=== PATIENT | female | born 1990 | race American Indian/Alaskan Native ===

== ENCOUNTER 2021-10-14 13:00 | Emergency (ER) | payer SELFPAY ==
[2021-10-14 13:52] VITALS: BP 105/66
--- NOTE | 2021-10-14 16:24 | Emergency Department Report ---
ED N/V/D HPI - General Chief complaint: Nausea/Vomiting/Diarrhea Stated complaint: EXCESSIVE BLEEDING Source: patient Mode of arrival: Ambulatory Limitations: No Limitations - History of Present Illness Initial comments: 31-year-old -Swazi female presents to the emergency room complaining of vomiting for the last 2 days. Patient reports that she is 7 weeks l ast menstrual period was 08/28/2021. She last had her Depo was 08/24/2021. She is 4 para 3. She states that she is followed by [facility] in [place]. She she last vomited was just prior to arrival here in the emergency room. MD complaint: nausea, vomiting - Related Data Previous Rx's Medication Instructions Recorded Last Taken Type Ondansetron [Zofran Odt] 4 mg PO Q8HR #12 tab.rapdis 10/14/21 Unknown Rx Allergies Allergy/AdvReac Type Severity Reaction Status Date / Time No Known Allergies Allergy Unverified 10/14/21 13:52 ED Review of Systems ROS: Stated complaint: EXCESSIVE BLEEDING Other details as noted in HPI Comment: All other systems reviewed and negative ED Past Medical Hx - Medications Home Medications: Home Medications Medication Instructions Recorded Confirmed Last Taken Type Ondansetron [Zofran Odt] 4 mg PO Q8HR #12 tab.rapdis 10/14/21 Unknown Rx ED Physical Exam - General Limitations: No Limitations General appearance: alert, in no apparent distress - Head Head exam: Present: atraumatic, normocephalic - Eye Eye exam: Present: normal appearance - ENT ENT exam: Present: normal external ear exam - Neck Neck exam: Present: normal inspection, full ROM - Respiratory Respiratory exam: Absent: respiratory distress - Cardiovascular Cardiovascular Exam: Present: bradycardia - Extremities Exam Extremities exam: Present: normal inspection, full ROM - Back Exam Back exam: Present: normal inspection, full ROM - Neurological Exam Neurological exam: Present: alert, oriented X3, normal gait - Psychiatric Psychiatric exam: Present: normal affect, normal mood - Skin Skin exam: Present: warm, dry, intact, normal color. Absent: rash ED Course Vital Signs 10/14/21 13:47 Temperature 98.3 F Pulse Rate 53 L Respiratory 16 Rate Blood Pressure 105/66 [Right] O2 Sat by Pulse 100 Oximetry ED Medical Decision Making - Medical Decision Making 31-year-old -Sw[place] female presents to the emergency room complaining of vomiting for the last 2 days. Patient reports that she is 7 weeks last menstrual period was 08/28/2021. She last had her Depo was 08/24/2021. She is 4 para 3. She states that she is followed by [facility] in [place]. She she last vomited was just prior to arrival here in the emergency room. Patient has been in the emergency room a little bit over 3 hours if no active vomiting. We will initiate a p.o. challenge. Patient passes that she will be discharged with referral to [facility]. Critical care attestation.: If time is entered above; I have spent that time in minutes in the direct care of this critically ill patient, excluding procedure time. ED Disposition Clinical Impression: Nausea and vomiting in prior to 22 weeks gestation Disposition: HOME / SELF CARE / HOMELESS Is pt being admited?: No Does the pt Need Aspirin: No Condition: Stable Instructions: Morning Sickness Additional Instructions: Recommend to take Zofran as needed for the nausea and vomiting. Recommend trying [id number] lance root. Increase your fluids advance your diet as tolerated. Very important to follow-up with a [facility]. Prescriptions: Ondansetron [Zofran Odt] 4 mg PO Q8HR #12 tab.rapdis Referrals: [facility] [Provider Group] - 3-5 Days [facility] [Provider Group] - 3-5 Days Forms: Work/School Release Form(ED) Time of Disposition: 18:40
== END 2021-10-14 18:48 | disposition home or self-care (01) ==
LOC: ED 13:00
DX: O21.9 Vomiting of pregnancy, unspecified (principal); Z3A.01 Less than 8 weeks gestation of pregnancy; Z79.899 Other long term (current) drug therapy
CPT/HCPCS: 99282

== ENCOUNTER 2021-10-23 22:19 | Emergency (ER) | payer OTHER ==
[2021-10-23] MEDS ORDERED: SODIUM CHLORIDE 0.9% 1000 ML 1,000 ML IV ONE (22:26)
[2021-10-23] MEDS ORDERED: NALOXONE 2 MG/2 ML INJ IV ONE (22:26)
[2021-10-23 22:45] LABS: Amphetamine Screen,Urine PRESUMPTIVE NEGATIVE; Benzodiazepines Screen,Urine PRESUMPTIVE NEGATIVE; Cannabinoid Screen,Urine PRESUMPTIVE NEGATIVE; Cocaine Screen,Urine PRESUMPTIVE NEGATIVE; Methadone Screen,Urine PRESUMPTIVE NEGATIVE; Opiate Screen,Urine PRESUMPTIVE NEGATIVE
[2021-10-23 22:47] LABS: HCG Qualitative,Urine Positive (Negative)
[2021-10-23 22:57] LABS: Bacteria,Urine 1+ /HPF (Negative); Bilirubin,Urine NEG (Negative); Blood,Urine SM (Negative); Color,Urine Colorless (Yellow); Mucus,Urine FEW /HPF; Protein,Urine <15 mg/dL mg/dL (Negative); Urobilinogen,Urine < 2.0 mg/dL (<2.0); WBC,Urine < 1.0 /HPF (0.0-6.0)
[2021-10-23 23:08] LABS: Basophils # (Auto) 0.1 K/mm3 (0.0-0.1); Basophils % (Auto) 0.9 % (0.0-1.8); Eosinophils # (Auto) 0.1 K/mm3 (0.0-0.4); Eosinophils % (Auto) 2.4 % (0.0-4.3); Hematocrit 35.3 % (30.3-42.9); Hemoglobin 11.6 gm/dl (10.1-14.3); Lymphocytes # (Auto) 2.6 K/mm3 (1.2-5.4); Lymphocytes % (Auto) 43.3 % (13.4-35.0); Mean Corpuscular HGB Conc 33 % (30-34); Mean Corpuscular Volume 83 fl (79-97); Monocytes # (Auto) 0.6 K/mm3 (0.0-0.8); Monocytes % (Auto) 10.7 % (0.0-7.3); Platelet Count 190 K/mm3 (140-440); Red Blood Count 4.29 M/mm3 (3.65-5.03); Red Cell Distribution Width 13.8 % (13.2-15.2)
[2021-10-23 23:19] LABS: INR 0.97 (0.87-1.13)
[2021-10-23 23:35] LABS: Alanine Aminotransferase 17 units/L (7-56); Blood Urea Nitrogen 4 mg/dL (7-17); Calcium 9.1 mg/dL (8.4-10.2); Hemolysis Index 19
[2021-10-23 23:36] LABS: BUN/Creatinine Ratio 7
--- NOTE | 2021-10-24 00:02 | Emergency Department Report ---
ED General Adult HPI - General Chief complaint: Altered Mental Status Stated complaint: POSSIBLE OVERDOSE PUI?: No Time Seen by Provider: 10/23/21 22:26 Source: family Mode of arrival: Stretcher Limitations: No Limitations - History of Present Illness Initial comments: Brought in from Triage with decreased responsiveness. Per significant other, pt stated that she took some meds and collasped in front of him. (Staff and provide r at bedside assessing pt). Awaken after Narcan and chest rub. Stated that she had an on and has been bleeding alot. Had one Naprosyn tab and denies SI nor HI. -: Sudden, hour(s) Associated Symptoms: confusion Treatments Prior to Arrival: none - Related Data Previous Rx's Medication Instructions Recorded Last Taken Type Ondansetron [Zofran Odt] 4 mg PO Q8HR #12 tab.rapdis 10/14/21 Unknown Rx Allergies Allergy/AdvReac Type Severity Reaction Status Date / Time No Known Allergies Allergy Verified 10/23/21 23:35 ED Review of Systems ROS: Stated complaint: POSSIBLE OVERDOSE Other details as noted in HPI Comment: Unobtainable due to pts medical conditions ED Past Medical Hx - Past Medical History Previous Medical History?: No - Surgical History Past Surgical History?: Yes Additional Surgical History: X 2. - Social History Smoking Status: Never Smoker Substance Use Type: None - Medications Home Medications: Home Medications Medication Instructions Recorded Confirmed Last Taken Type Ondansetron [Zofran Odt] 4 mg PO Q8HR #12 tab.rapdis 10/14/21 Unknown Rx ED Physical Exam - General Limitations: No Limitations General appearance: lethargic - Head Head exam: Present: atraumatic, normocephalic - Eye Eye exam: Present: normal appearance - ENT ENT exam: Present: mucous membranes moist - Neck Neck exam: Present: normal inspection - Respiratory Respiratory exam: Present: normal lung sounds bilaterally. Absent: respiratory distress - Cardiovascular Cardiovascular Exam: Present: regular rate, normal rhythm. Absent: systolic murmur, diastolic murmur, rubs, gallop - GI/Abdominal GI/Abdominal exam: Present: soft, normal bowel sounds - Extremities Exam Extremities exam: Present: normal inspection - Back Exam Back exam: Present: normal inspection - Neurological Exam Neurological exam: Present: altered - Expanded Neurological Exam Expanded Best Eye Response ([place]): (2) open to pain Best Motor Response ([place]): (5) localizes to pain Best Verbal Response (Jared): (1) no verbal response [place] Total: 8 - Psychiatric Psychiatric exam: Present: anxious - Skin Skin exam: Present: warm, dry, intact, normal color. Absent: rash ED Course Vital Signs 10/23/21 10/23/21 10/23/21 22:27 22:30 22:31 Temperature 98 F Pulse Rate 85 81 81 Respiratory 20 18 13 Rate Blood Pressure 144/86 Blood Pressure [Right] O2 Sat by Pulse 100 100 100 Oximetry 10/23/21 10/23/21 10/23/21 22:45 23:00 23:01 Temperature Pulse Rate 76 73 Respiratory 14 21 21 Rate Blood Pressure 143/88 142/82 Blood Pressure [Right] O2 Sat by Pulse 100 100 100 Oximetry 10/23/21 10/23/21 10/23/21 23:15 23:31 23:45 Temperature Pulse Rate 71 73 75 Respiratory 17 19 16 Rate Blood Pressure 106/56 108/73 106/45 Blood Pressure [Right] O2 Sat by Pulse 99 100 100 Oximetry 10/24/21 10/24/21 10/24/21 00:15 00:31 07:17 Temperature 98.2 F Pulse Rate 72 73 66 Respiratory 15 18 18 Rate Blood Pressure 123/86 121/79 Blood Pressure 122/72 [Right] O2 Sat by Pulse 100 100 99 Oximetry 10/24/21 10/24/21 10/24/21 09:00 10:44 17:00 Temperature Pulse Rate 90 Respiratory 18 Rate Blood Pressure Blood Pressure 131/78 [Right] O2 Sat by Pulse 99 100 97 Oximetry ED Medical Decision Making - Lab Data Result diagrams: 10/23/21 22:34 10/23/21 22:34 - EKG Data -: EKG Interpreted by Nd EKG shows normal: sinus rhythm Rate: normal - EKG Data Interpretation: no acute changes - Radiology Data Radiology results: report reviewed, image reviewed - Medical Decision Making pt imrpoved currently awake and alert work up negatve medically cleared , denies any overdose but txt with BF shows suicidal note , 1013 and will get her assessed Critical care attestation.: If time is entered above; I have spent that time in minutes in the direct care of this critically ill patient, excluding procedure time. ED Disposition Clinical Impression: Altered mental status, Syncope Disposition: HOME / SELF CARE / HOMELESS Is pt being admited?: No Does the pt Need Aspirin: No Condition: Stable Instructions: Syncope, Syncope (ED) Additional Instructions: Follow-up with your doctor or doctor/clinic provided. Return if symptoms worsen as indicated by your discharge instructions. Referrals: [facility] [Provider Group] - 3-5 Days RENAY SHI MD [Staff Physician] - 3-5 Days (primary care doctor )
--- NOTE | 2021-10-24 00:51 | XRay Report ---
CHEST 1 VIEW 10/23/2021 11:02 PM INDICATION / CLINICAL INFORMATION: Altered Mental Status. COMPARISON: None available. FINDINGS: SUPPORT DEVICES: None. HEART / MEDIASTINUM: No significant abnormality. LUNGS / PLEURA: No significant pulmonary abnormality. No significant pleural effusion. No pneumothora x. ADDITIONAL FINDINGS: No significant additional findings. IMPRESSION: 1. No acute abnormality of the chest. Signer Name: Sylvester Adames MD Signed: 10/24/2021 12:47 AM Workstation Name: [id number]
--- NOTE | 2021-10-24 11:18 | Consultation ---
History of Present Illness - Reason for Consult Consult date: 10/24/21 Reason for consult: possible overdose - History of Present Psychiatric Illness HPI: Brought in from Triage with decreased responsiveness. Per significant other, pt stated that she took some meds and collasped in front of him. (Staff and provider at bedside assessing pt). Awaken after Narcan and chest rub. Stated that she had an on and has been bleeding alot. Had one Naprosyn tab and denies SI nor HI. The patient was seen today. She's slightly irritable, but cooperative. She says she's very upset because she came here for passing out and was placed in the psych area. She says she doesn't understand the procedures of the hospital and want explanations. The patient says she had an Tuesday and took one naprosyn on an empty stomach. She says "it made me sick I think that's why I passed out." She denies attempting to do any self harm. She also denies any past history of suicide attempts. The patient says "I have three children at home. Why would I want to hurt myself." She then says "they are at home alone, because I don't even have family here." The patient says she's from [place]. She denies any illicit drug use or excessive alcohol use. The patient also denies any past psych history or being on any psych meds. PAST PSYCHIATRIC HISTORY: Diagnoses: Denies Suicide attempts or Self-harm behavior: Denies Prior psychiatric hospitalizations: Denies Substance Abuse history: Denies Previous psychiatric medications tried: Denies Outpatient treatment: Denies PAST MEDICAL HISTORY: None reported or document Family Psychiatric History: None reported or documented SOCIAL HISTORY Marital Status: Single Living Arrangements: with children Employment Status: Employed Access to guns/weapons: Denies Education: high school History of Abuse: Denies Legal History: Denies REVIEW OF SYSTEMS Constitutional: Negative for weight loss ENT: Negative for stridor Respiratory: Negative for cough or hemoptysis All other systems reviewed and are negative MENTAL STATUS EXAMINATION General Appearance and Behavior: Age appropriate, wearing appropriate clothes, cooperative, polite with questioning, good eye contact, irritable Cooperation: cooperative Psychomotor Behavior: Psychomotor normal Mood: upset Affect and affective range: Congruent with stated mood Thought Process: Goal directed Thought Content: None Speech: Normal volume, Regular rate and rhythm Suicidal Ideation: Denies Homicidal Ideation: Denies Hallucination: Intermittent Delusions: None elicited Impulse Control: limited Insight and Judgment: Limited Memory: Intact Attention: attentive Orientation: Alert and oriented Diagnoses: Mental Health Evaluation Treatment Plan d/c 1013 PSYCHOTHERAPY: Supportive psychotherapy provided MEDICAL: Per primary team DELIRIUM PRECAUTIONS: Please re-orient patient frequently, keep lights on during the day, and minimize benzodiazepines and opiates as these medications could worsen patient's confusion. 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 The patient understands that if SI/HI arise she is to seek immediate assistance. Legal Contracts Specialist to further discuss safety plan Will sign off. Thank you for the consult. Case staffed with Dr. Gama Medications and Allergies Allergies Allergy/AdvReac Type Severity Reaction Status Date / Time No Known Allergies Allergy Verified 10/23/21 23:35 Home Medications Medication Instructions Recorded Confirmed Last Taken Type Ondansetron [Zofran Odt] 4 mg PO Q8HR #12 tab.rapdis 10/14/21 Unknown Rx Mental Status Exam - Vital signs Last Vital Signs Temp 98.2 F 10/24/21 07:17 Pulse 66 10/24/21 07:17 Resp 18 10/24/21 07:17 BP 122/72 10/24/21 07:17 Pulse Ox 100 10/24/21 10:44 Results Result Diagrams: 10/23/21 22:34 10/23/21 22:34 Abnormal lab results 10/23/21 10/23/21 10/23/21 Range/Units 22:34 22:34 22:34 MCH 27 L (28-32) pg Lymph % (Auto) 43.3 H (13.4-35.0) % [place] % (Auto) 10.7 H (0.0-7.3) % BUN 4 L (7-17) mg/dL Total Creatine Kinase 150 H (30-135) units/L TSH 5.460 H (0.270-4.200) mlU/mL HCG, Quant (0-4) mIU/mL Ur Specific [place] (1.003-1.030) Urine HCG, Qual (Negative) Salicylates (2.8-20.0) mg/dL Acetaminophen (10.0-30.0) ug/mL 05/10/23/21 10/23/21 Range/Units 22:34 22:34 22:34 MCH (28-32) pg Lymph % (Auto) (13.4-35.0) % [place] % (Auto) (0.0-7.3) % BUN (7-17) mg/dL Total Creatine Kinase (30-135) units/L TSH (0.270-4.200) mlU/mL HCG, Quant 2188 H (0-4) mIU/mL Ur Specific [place] (1.003-1.030) Urine HCG, Qual (Negative) Salicylates < 0.3 L (2.8-20.0) mg/dL Acetaminophen 5.0 L (10.0-30.0) ug/mL 10/23/21 Range/Units Unknown MCH (28-32) pg Lymph % (Auto) (13.4-35.0) % [place] % (Auto) (0.0-7.3) % BUN (7-17) mg/dL Total Creatine Kinase (30-135) units/L TSH (0.270-4.200) mlU/mL HCG, Quant (0-4) mIU/mL Ur Specific [place] 1.001 L (1.003-1.030) Urine HCG, Qual Positive A (Negative) Salicylates (2.8-20.0) mg/dL Acetaminophen (10.0-30.0) ug/mL All other labs normal.
--- NOTE | 2021-10-24 16:29 | Emergency Department Report ---
Blank Doc - Documentation Documentation: 31-year-old female presents to the hospital with syncope and decreased respons iveness who was evaluated by mental health. Patient has been cleared by mental health for discharge due to denies suicidal homicidal ideation. Patient states she had a D&C surgical on Tuesday and is having some mild cramping suprapubic abdominal pain with vaginal bleeding. Patient states she did have ultrasound to confirm IUP. No signs of severe anemia or cardiopulmonary instability after labs and vital signs reviewed. Patient will be discharged
[2021-10-24 17:47] VITALS: BP 131/78
--- NOTE | 2021-10-25 18:12 | Electrocardiograph Report ---
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
== END 2021-10-24 17:00 | disposition home or self-care (01) ==
LOC: ED 22:19
DX: R41.82 Altered mental status, unspecified (principal); R55 Syncope and collapse
CPT/HCPCS: 71045; 80053; 80307; 80320; 81001; 81025; 82140; 82550; 84443; 84484; 84702; 85025; 85610; 93005; 96361; 96374; 99284; G0480